=== PATIENT | female | born 1975 | race African-American/Black ===

== ENCOUNTER 2017-07-08 19:16 | Inpatient (IN) | payer OTHER ==
[~2017-07-08] VITALS: Ht 175.3 cm; Wt 123.8 kg
[~2017-07-08 19:16] MED LIST: ACT30 PO; ADV500/50 INH; BUS10 PO; CALCIUM PO; COL100 PO; COZ50 PO; DIVALPROEX DR PO; DOK PO; FANAPT PO; GLU10 PO; GLU500 PO; HYD25 PO; KLO0.5 PO; MOBIC PO; MOT400 PO; OMEGA 3 FISH OIL PO; OMEPRAZOLE PO; RIS1 PO; SERO100 PO; SEROQUEL XR PO; SING10 PO; SPIRIVA HANDIHALER INH; TOP100 PO; TRA50 PO; TROKENDI XR50 MG PO; TYL325S PR; VERAPAMIL ER PO; VITAMIN D-3 PO; VITD PO; XOPENEX INHALER INH; ZOC20 PO
[2017-07-08 20:43] LABS: RED CELL DISTRIBUTION WIDTH 14.5 % (11.5-14.5)
[2017-07-08 20:48] LABS: BASOPHIL % 0.8 % (0-2); PLATELET COUNT 197 x10^3mcL (130-400)
[2017-07-08 21:11] LABS: CALCIUM 8.5 mg/dL (8.5-10.1); CARBON DIOXIDE 30.4 mmol/L (21-32); CREATININE SERUM 1.3 mg/dL (0.6-1.0); POTASSIUM SERUM 4.7 mmol/L (3.5-5.1)
[2017-07-08 21:18] LABS: microscopic required? NO
[2017-07-08 21:23] LABS: ALBUMIN 2.8 g/dL (3.4-5.0); BILIRUBIN TOTAL 0.2 mg/dL (0.20-1.00); T4(THYROXINE) 9.2 ug/dL (4.7-13.3); TOTAL PROTEIN, SERUM 6.4 g/dL (6.4-8.2)
[2017-07-08 21:28] LABS: urine erythrocyte NEGATIVE (NEGATIVE)
[2017-07-08 21:38] LABS: AMPHETAMINE QUAL UR NONE DETECTED (NEG <=1000)
[2017-07-08 23:18] VITALS: BP 115/66
[2017-07-08 23:53] LABS: CHOLESTEROL/HDL RATIO 3.4; MAGNESIUM 1.9 mg/dL (1.8-2.4); PHOSPHOROUS 4.2 mg/dL (2.5-4.9)
[2017-07-09 00:03] LABS: FREE T4 1.11 ng/dL (0.76-1.46); T4(THYROXINE) 8.7 ug/dL (4.7-13.3)
[2017-07-09 00:30] VITALS: BP 122/74
[2017-07-09 01:03] LABS: T3 TOTAL 0.96 ng/mL
[2017-07-09 01:37] LABS: CALCIUM 7.8 mg/dL (8.5-10.1); CARBON DIOXIDE 25.3 mmol/L (21-32); CHLORIDE SERUM 106 mmol/L (98-107); GFR1 > 60 mL/min; GLUCOSE SERUM 170 mg/dL (74-106); SODIUM SERUM 139 mmol/L (136-145)
[2017-07-09 01:44] LABS: POTASSIUM SERUM 4.5 mmol/L (3.5-5.1)
[2017-07-09 05:54] VITALS: BP 110/57
[2017-07-09] MEDS ORDERED: GABAPENTIN300 M4 PO (08:18)
[2017-07-09 08:20] VITALS: BP 122/75
[2017-07-09 09:32] VITALS: BP 116/67
[2017-07-09 09:54] LABS: BASOPHIL % 0.2 % (0-2); PLATELET COUNT 220 x10^3mcL (130-400); RED CELL DISTRIBUTION WIDTH 14.5 % (11.5-14.5)
[2017-07-09 11:59] VITALS: Ht 175.3 cm; Wt 123.8 kg
[2017-07-09] MEDS ORDERED: LEVAQUIN750 MG PO (15:26)
[2017-07-09] MEDS ORDERED: CLEOCIN HCL150 MG PO (15:27)
[2017-07-09] MEDS ORDERED: ATORVASTATIN CA40 M1 PO (16:20)
[2017-07-09] MEDS ORDERED: ASPIR 8181 MG PO (16:20)
== END 2017-07-09 14:20 | disposition left against medical advice (07) | DRG 137 ==
LOC: ED 19:16 → DU 22:36
PROVIDERS: Emergency Medicine; ADMIT Family Medicine
DX: J69.0 Pneumonitis due to inhalation of food and vomit (principal); N17.0 Acute kidney failure with tubular necrosis; E43 Unspecified severe protein-calorie malnutrition; E11.22 Type 2 diabetes mellitus with diabetic chronic kidney disease; R56.9 Unspecified convulsions; Z68.41 Body mass index [BMI] 40.0-44.9, adult; J45.901 Unspecified asthma with (acute) exacerbation; F20.9 Schizophrenia, unspecified; F31.9 Bipolar disorder, unspecified; F17.210 Nicotine dependence, cigarettes, uncomplicated; I12.9 Hypertensive chronic kidney disease with stage 1 through stage 4 chronic kidney disease, or unspecified chronic kidney disease; N18.3 Chronic kidney disease, stage 3 (moderate); F70 Mild intellectual disabilities; E66.9 Obesity, unspecified; Z71.3 Dietary counseling and surveillance; E78.00 Pure hypercholesterolemia, unspecified; D64.9 Anemia, unspecified
CPT/HCPCS: 82962; 83880; 84439; 87804; 99406; J1940; J1956; J2930; J3490; J7030; J7613; J7620; J7644; Q0092

== ENCOUNTER 2019-01-20 20:13 | Emergency (ER) | payer OTHER ==
[~2019-01-20] VITALS: Ht 170.2 cm; Wt 123.4 kg
[~2019-01-20 20:13] MED LIST changes: +ASPIR 8181 MG PO; +ATORVASTATIN CA40 M1 PO; +CLEOCIN HCL150 MG PO; +GABAPENTIN300 M4 PO; +LEVAQUIN750 MG PO
[2019-01-20 20:25] VITALS: Ht 170.2 cm; Wt 123.4 kg
[2019-01-20 23:38] VITALS: BP 116/73
== END 2019-01-20 23:38 | disposition home or self-care (01) ==
LOC: ED 20:13
DX: E11.65 Type 2 diabetes mellitus with hyperglycemia (principal); J45.909 Unspecified asthma, uncomplicated; F31.9 Bipolar disorder, unspecified; Z98.890 Other specified postprocedural states
CPT/HCPCS: 82962; J1815

== ENCOUNTER 2019-01-31 20:50 | Emergency (ER) | payer OTHER ==
[~2019-01-31] VITALS: Ht 170.2 cm; Wt 104.3 kg
[2019-01-31 21:44] LABS: PLATELET COUNT 228 x10^3mcL (130-400)
[2019-01-31 21:45] LABS: BASOPHIL % 2.4 % (0-2); RED CELL DISTRIBUTION WIDTH 14.9 % (11.5-14.5)
[2019-01-31 22:04] LABS: CALCIUM 9.6 mg/dL (8.5-10.1); CARBON DIOXIDE 28.7 mmol/L (21-32); CREATININE SERUM 1.3 mg/dL (0.6-1.0)
[2019-01-31 22:09] LABS: ALBUMIN 3.5 g/dL (3.4-5.0); BILIRUBIN TOTAL 0.2 mg/dL (0.20-1.00); TOTAL PROTEIN, SERUM 7.5 g/dL (6.4-8.2)
[2019-01-31 23:34] LABS: UA SPECIFIC GRAVITY 1.025 (1.005-1.035); microscopic required? YES; urine erythrocyte 2+ (NEGATIVE)
[2019-02-01 01:36] VITALS: BP 121/71
== END 2019-02-01 01:36 | disposition home or self-care (01) ==
LOC: ED 20:50
PROVIDERS: Emergency Medicine
DX: N39.0 Urinary tract infection, site not specified (principal); E11.65 Type 2 diabetes mellitus with hyperglycemia; N28.9 Disorder of kidney and ureter, unspecified; F17.210 Nicotine dependence, cigarettes, uncomplicated; J45.909 Unspecified asthma, uncomplicated; F20.9 Schizophrenia, unspecified; F79 Unspecified intellectual disabilities; E11.9 Type 2 diabetes mellitus without complications; F31.9 Bipolar disorder, unspecified

== ENCOUNTER 2019-04-26 18:51 | Emergency (ER) | payer OTHER ==
[~2019-04-26] VITALS: Ht 170.2 cm; Wt 122.9 kg
[2019-04-26 19:34] VITALS: Ht 170.2 cm; Wt 122.9 kg
[2019-04-26 21:35] VITALS: BP 107/66
== END 2019-04-26 21:35 | disposition home or self-care (01) ==
LOC: ED 18:51
DX: E11.649 Type 2 diabetes mellitus with hypoglycemia without coma (principal); J45.909 Unspecified asthma, uncomplicated; F20.9 Schizophrenia, unspecified; F31.9 Bipolar disorder, unspecified; F79 Unspecified intellectual disabilities; Z98.890 Other specified postprocedural states
CPT/HCPCS: 82962